=== PATIENT | female | born 1990 | race African-American/Black ===

== ENCOUNTER 2017-12-01 11:59 | Emergency (ER) | payer MEDICAID ==
[2017-12-01 12:29] VITALS: BP 120/61; PULSE 104; RESP 16; TEMP 98.5; O2SAT 100
[2017-12-01] MEDS ORDERED: PROPARACAINE HCL 0.5% OPHT SOLN 15 ML BTL RIGHT EYE ONE (13:00)
[2017-12-01] MEDS ORDERED: ERYTOIN10 RIGHT EYE (13:26)
[2017-12-01] MEDS ORDERED: IBUP-232 PO (13:26)
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
== END 2017-12-01 14:06 | disposition home or self-care (01) ==
LOC: NEPD 11:59
DX: S05.11XA Contusion of eyeball and orbital tissues, right eye, initial encounter (principal); X58.XXXA Exposure to other specified factors, initial encounter; Z72.0 Tobacco use
CPT/HCPCS: 99283